=== PATIENT | female | born 1990 | race African-American/Black ===

== ENCOUNTER 2019-06-03 13:35 | Emergency (ER) | payer MEDICAID ==
[~2019-06-03] VITALS: Ht 157.5 cm; Wt 77.1 kg
[2019-06-03 13:48] VITALS: BP 142/75
[2019-06-03] MEDS ORDERED: KETOROLAC TROMETHAMINE INJ 30 MG/ML VIAL IV ONE (14:30)
[2019-06-03] MEDS ORDERED: METOCLOPRAMIDE HCL 10 MG/2 ML VIAL IV ONE (14:30)
[2019-06-03] MEDS ORDERED: ACETAMINOPHEN ES 500 MG TABLET PO ONE (14:30)
[2019-06-03] MEDS ORDERED: IV NS 0.9% 1,000 ML BAG IV ONE (14:30)
[2019-06-03] MEDS ORDERED: KETOROLAC TROMETHAMINE INJ 30 MG/ML VIAL ONE (14:54)
[2019-06-03] MEDS ORDERED: METOCLOPRAMIDE HCL 10 MG/2 ML VIAL ONE (14:54)
[2019-06-03] MEDS ORDERED: ACETAMINOPHEN ES 500 MG TABLET ONE (14:54)
== END 2019-06-03 16:49 | disposition home or self-care (01) ==
LOC: ER 13:39
DX: G43.909 Migraine, unspecified, not intractable, without status migrainosus (principal); R42 Dizziness and giddiness; Z60.2 Problems related to living alone
CPT/HCPCS: 96361; 96374; 96375; 99284; J1885; J2765; J7030

== ENCOUNTER 2021-03-13 08:47 | Emergency (ER) | payer MEDICAID, OTHER ==
[~2021-03-13] VITALS: Ht 157.5 cm; Wt 77.1 kg
--- NOTE | 2021-03-13 09:14 | NUR ---
TO ER BED 7, C/O FACIAL AND NECK SWELLING SINCE MIDNIGHT, DENIES SOB, AAOX3, BREATHING EVEN AND NON LABORED, AWAITING MD GUERRERO
[2021-03-13] MEDS ORDERED: predniSONE 50 MG TABLET PO ONE (09:30)
[2021-03-13] MEDS ORDERED: diphenhydrAMINE HCL 25 MG CAPSULE PO ONE (09:30)
[2021-03-13] MEDS ORDERED: FAMOTIDINE (20 MG) 20 MG TABLET PO ONE (09:30)
[2021-03-13] MEDS ORDERED: diphenhydrAMINE HCL 50 MG CAPSULE ONE (09:31)
[2021-03-13] MEDS ORDERED: predniSONE 20 MG TABLET ONE (09:31)
[2021-03-13] MEDS ORDERED: FAMOTIDINE (20 MG) 20 MG TABLET ONE (09:31)
[2021-03-13 09:45] LABS: BASOPHILS % (AUTO) 0.5 % (0.0-2.0); EOSINOPHILS % (AUTO) 1.7 % (0.0-6.0); HEMATOCRIT 40 % (33-45); HEMOGLOBIN 13.5 g/dL (11.5-14.8); LYMPHOCYTES # (AUTO) 1.4 K/uL (0.8-4.8); LYMPHOCYTES % (AUTO) 23.3 % (20.0-44.0); MEAN CORPUSCULAR HGB CONC 34 g/dl (31.0-36.0); MEAN CORPUSCULAR VOLUME 91 fL (82-100); MONOCYTES # (AUTO) 0.4 K/uL (0.1-1.30); MONOCYTES % (AUTO) 6.9 % (2.0-12.0); NEUTROPHILS # (AUTO) 4.1 K/uL (1.8-8.9); NEUTROPHILS % (AUTO) 67.6 % (43.0-81.0); PLATELET COUNT (AUTO) 320 K/uL (150-450); RED BLOOD CELL COUNT(AUTO) 4.43 MIL/uL (4.0-5.2); WHITE BLOOD COUNT (AUTO) 6.1 K/uL (4.3-11.0)
[2021-03-13] MEDS ORDERED: IV NS 0.9% 250 ML IV ONE (10:12)
[2021-03-13] MEDS ORDERED: CT SWABBABLE VALVE TRANS SET 1 EA INFUS.SET MC ONE (10:12)
[2021-03-13] MEDS ORDERED: IOHEXOL-300 100 ML VIAL IV ONE (10:12)
--- NOTE | 2021-03-13 10:24 | NUR ---
BACK FROM CT
--- NOTE | 2021-03-13 10:45 | NUR ---
radiology called to f/u ct reading
[2021-03-13 10:49] LABS: CALCIUM, SERUM 8.6 mg/dL (8.5-10.1); CREATININE 0.7 mg/dL (0.6-1.3); POTASSIUM 3.8 mmol/L (3.5-5.1)
[2021-03-13] MEDS ORDERED: PRED50TA PO (11:54)
[2021-03-13 12:05] VITALS: BP 133/84
--- NOTE | 2021-03-13 12:05 | NUR ---
IV removed. Catheter intact and site benign. Pressure and 4x4 applied to site. No bleeding noted.Patient discharged to home in stable condition. Written and verbal after care instructions given. Patient verbalizes understanding of instruction.
[2021-03-13 13:10] LABS: THYROID STIMULATING HORMONE 0.614 uIU/mL (0.358-3.74)
== END 2021-03-13 12:06 | disposition home or self-care (01) ==
LOC: ER 08:56
DX: R59.0 Localized enlarged lymph nodes (principal)
CPT/HCPCS: 36415; 70491; 80048; 84439; 84443; 85025; 99285; J7050; J7512; Q0163; Q9967